=== PATIENT | female | born 1995 | race Caucasian/White ===

== ENCOUNTER 2016-03-04 22:24 | Emergency (ER) | payer OTHER, SELFPAY ==
--- NOTE | 2016-03-05 00:31 | EDDOCDS ---
Nurse's Notes [facility] Name: Luis Eduardo Knapp Age: 20 yrs Sex: Female : 1995 Arrival Date: 03/04/2016 Time: 22:24 Bed Triage 2 Private MD: No Pcp Diagnosis: Abdominal and pelvic pain;Nausea Presentation: 03/04 22:34 Presenting complaint: Patient states: that she has been feeling nauseous for the past ms18 few days and crampy. Risk factors: the patient reports no vaginal bleeding. Adult Sepsis Screening: The patient does not have new or worsening altered mentation. Patient's respiratory rate is less than 22. Systolic blood pressure is greater than 100. Patient has a qSOFA score of 0- Negative Sepsis Screen. Suicide/Homicide risk assessment- the patient denies having any suicidal and/or homicidal ideations and does not present with any other emotional, behavioral or mental health complaints. Status: Patient is not a sales service promoter or dependent. Transition of care: patient was not received from another setting of care. 22:34 Acuity: KORI Level 4 ms18 22:34 Method Of Arrival: Walkin/Carried/Asstd ms18 Triage Assessment: 22:36 General: Appears in no apparent distress, comfortable, Behavior is appropriate for age, ms18 cooperative. Pain: Location: pelvis Pain currently is 5 out of 10 on a pain scale. HIV screening NA for this visit Offered previously. Neurological: No deficits noted. Respiratory: Airway is patent Respiratory effort is even, unlabored. GI: Denies diarrhea, vomiting. Derm: Skin is pink, warm & dry. ERP PM: 22:36 LMP 01/21/2016 ms18 Historical: - Allergies: no known allergies; - Home Meds: 1. control - PMHx: none; - PSHx: none; - Social history: Smoking status: Patient uses tobacco products, current every day smoker. No barriers to communication noted, The patient speaks fluent Indonesian. - Family history: Not pertinent. - : The pt / caregiver states he / she is not on anticoagulants. Home medication list is obtained from the patient. - Exposure Risk Screening:: None identified. Screenin/03 00:27 Screening information is obtained from the patient. Fall risk: No risks identified. jmb Assistance ADL's: requires no assistance with activities of daily living. Abuse/DV Screen: The patient / caregiver reports he/she is: not in a situation that causes fear, pain or injury. Nutritional screening: No deficits noted. Advance Directives: Currently, there is no health care proxy. There is no active DNR order. There is no living will. There is no Power of Appraisal Specialist. home support is adequate. Assessment: 00:27 General: Patient instructed on discharge instructions. Patient asked if there were any b questions regarding discharge, patient stated no. Patient signed discharge instructions. Patient discharged in stable condition. . GI: Abdomen is non- distended Bowel sounds present X 4 quads. Abd is soft X 4 quads. Vital Signs: 03/04 22:26 BP 132 / 67; Pulse 70; Resp 18 S; Temp 98.6(O); Pulse Ox 99% on R/A; Weight 83.01 kg gr2 (R); Height 5 ft. 10 in. (177.80 cm) (R); Pain 6/10; 03/05 00:27 BP 128 / 70; Pulse 72; Resp 20; Temp 98.0(O); Pulse Ox 98% on R/A; Pain 3/10; jmb 03/04 22:26 Body Mass Index 26.26 (83.01 kg, 177.80 cm) gr2 Vitals: 03/04 22:36 Log In Time: March 04, 2016 at 22:24. ms18 ED Course: 22:25 Patient visited by Roldan Healy. gr2 22:25 No Pcp is Private Physician. gr2 22:25 Patient moved to Waiting gr2 22:29 Patient visited by Roldan Healy. gr2 22:29 Patient moved to Pre RCE gr2 22:36 Triage Initiated ms18 22:48 UA Sent. ms18 22:48 Urine Culture Sent. ms18 23:22 Patient moved to Triage 2 cz 23:53 Chago Luke PA is PHCP. mo1 23:53 Joni Irizarry MD is Attending Physician. mo1 23:53 Patient visited by Chago Luke PA. mo1 03/05 00:25 [facility] is Referral Physician. mo1 00:25 Emerson Santacruz MD is Referral Physician. mo1 00:27 The patient / caregiver is instructed regarding the plan of care and ED course. jmb 00:27 No IV's were initiated during this patient's visit. No procedures done that require [facility] assistance. Point of Care Testing: Urine : 03/04 22:48 hCG Reading: Negative; Control Reading: Positive; ms18 Ranges: Order Results: Lab Order: UA; SPEC'M 03/04/16 22:42 Test: APPEARANCE, URINE; Value: CLEAR; Range: CLEAR; Status: F Test: COLOR, URINE; Value: STRAW; Range: YELLOW; Status: F Test: PH,URINE; Value: 5.0; Range: 5.0-9.0; Units: UNITS; Status: F Test: SPECIFIC GRAVITY URINE AUTO; Value: 1.005; Range: 1.002-1.035; Status: F Test: PROTEIN, URINE AUTO; Value: NEGATIVE; Range: NEGATIVE; Units: mg/dL; Status: F Test: GLUCOSE, URINE (UA) AUTO; Value: NEGATIVE; Range: NEGATIVE; Units: mg/dL; Status: F Test: KETONE, URINE AUTO; Value: NEGATIVE; Range: NEGATIVE; Units: mg/dL; Status: F Test: UROBILINOGEN, URINE AUTO; Value: 0.2; Range: 0.0-2.0; Units: mg/dL; Status: F Test: BILIRUBIN, URINE AUTO; Value: NEGATIVE; Range: NEGATIVE; Status: F Test: NITRITE, URINE AUTO; Value: NEGATIVE; Range: NEGATIVE; Status: F Test: LEUKOCYTE ESTERASE, URINE AUTO; Value: NEGATIVE; Range: NEGATIVE; Status: F Test: BLOOD, URINE BLOOD; Value: NEGATIVE; Range: NEGATIVE; Status: F Test: WBC, URINE AUTO; Value: 2; Range: 0-3; Units: /HPF; Status: F Test: RBC, URINE AUTO; Value: 3; Range: 0-3; Units: /HPF; Status: F Test: BACTERIA, URINE AUTO; Value: 1+; Range: NEGATIVE; Abnormal: Above high normal; Status: F Test: SQUAMOUS EPITHELIAL CELL UR AU; Value: 3; Range: 0-6; Units: /HPF; Status: F Test: HYALINE CAST, URINE AUTO; Value: 0; Range: 0-1; Units: /LPF; Status: F Outcome: 03/05 00:25 Discharge ordered by Provider. mo1 00:27 Discharge Assessment: Patient awake, alert and oriented x 3. No cognitive and/or jmb functional deficits noted. Patient verbalized understanding of disposition instructions. Patient awake and alert. obeys commands, Oriented to person, place and time. Patient verbalized understanding of disposition instructions. Patient has no functional deficits. patient administered narcotics - no. The following High Risk Discharge criteria are identified: Yes, Patient refused all services and testing provided by provider. . Discharged to home ambulatory. Condition: stable. Discharge instructions given to patient, Instructed on discharge instructions, follow up and referral plans. Demonstrated understanding of instructions, Pt was receptive of discharge instructions/ teaching. No special radiology studies were completed. Property sent home with patient. 00:30 Patient left the ED. eric Signatures: Luther Gallardo, RN RN cz Roldan Healy gr2 Chago Luke PA PA mo1 Becker, Joshua,RN RN Lorena Mora RN RN ms18 SHARI
--- NOTE | 2016-03-05 00:31 | EDDOCDS ---
Physician Documentation [facility] Name: Luis Eduardo Knapp Age: 20 yrs Sex: Female : 1995 Arrival Date: 03/04/2016 Time: 22:24 Bed Triage 2 Private MD: No Pcp Disposition: 03/05/16 00:25 Discharged to Home/Self Care. Impression: Abdominal and pelvic pain, Nausea. - Condition is Stable. - Discharge Instructions: Nausea, Adult, Pelvic Pain, Female. - Medication Reconciliation, Local Pharmacy Hours form. - [facility]; When: Call to arrange an appointment; Reason: Recheck today's complaints, Continuance of care. Follow up: Emerson Santacruz MD; When: Call to arrange an appointment; Reason: Recheck today's complaints, Continuance of care. - Problem is new. - Symptoms are unchanged. Historical: - Allergies: no known allergies; - Home Meds: 1. control - PMHx: none; - PSHx: none; - Social history: Smoking status: Patient uses tobacco products, current every day smoker. No barriers to communication noted, The patient speaks fluent Azerbaijani. - Family history: Not pertinent. - : The pt / caregiver states he / she is not on anticoagulants. Home medication list is obtained from the patient. - Exposure Risk Screening:: None identified. 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 10 in. (177.80 cm) (R); Pain 6/10; 03/05 00:27 BP 128 / 70; Pulse 72; Resp 20; Temp 98.0(O); Pulse Ox 98% on R/A; Pain 3/10; jmb 03/04 22:26 Body Mass Index 26.26 (83.01 kg, 177.80 cm) gr2 MDM: 03/04 22:39 UCG by Nursing ordered. ms18 22:40 UA Ordered. EDMS 22:40 Urine Culture Ordered. EDMS 03/05 00:12 UA Reviewed. mo1 00:17 -US Pelvic Non-Ob Complete Ordered. EDMS 00:17 DUPLEX SCAN LIMITED (DOPPLER)+US Ordered. EDMO Point of Care Testing: Urine : 03/04 22:48 hCG Reading: Negative; Control Reading: Positive; ms18 Ranges: Signatures: Dispatcher [employer] EDMO Chago Luke PA PA mo1 Soto TamezRN RN Lorena Mora RN RN ms18 The chart was reviewed and I authenticate all verbal orders and agree with the evaluation and treatment provided.Corrections: (The following items were deleted from the chart) 03/05 00:20 00:17 CBC WITH DIFFERENTIAL+LAB ordered. EDMO EDMS 00:20 00:17 BASIC METABOLIC PROFILE+LAB ordered. EDMO EDMO 00:20 00:17 HCG, QUALITATIVE+LAB ordered. EDMO EDMO MTDD
--- NOTE | 2016-03-07 01:31 | EDDOCDS ---
Nurse's Notes [facility] Name: Luis Eduardo Knapp Age: 20 yrs Sex: Female : 1995 Arrival Date: 03/04/2016 Time: 22:24 Bed Triage 2 Private MD: No Pcp Diagnosis: Abdominal and pelvic pain;Nausea Presentation: 03/04 22:34 Presenting complaint: Patient states: that she has been feeling nauseous for the past ms18 few days and crampy. Risk factors: the patient reports no vaginal bleeding. Adult Sepsis Screening: The patient does not have new or worsening altered mentation. Patient's respiratory rate is less than 22. Systolic blood pressure is greater than 100. Patient has a qSOFA score of 0- Negative Sepsis Screen. Suicide/Homicide risk assessment- the patient denies having any suicidal and/or homicidal ideations and does not present with any other emotional, behavioral or mental health complaints. Status: Patient is not a child and family services worker or dependent. Transition of care: patient was not received from another setting of care. 22:34 Acuity: KORI Level 4 ms18 22:34 Method Of Arrival: Walkin/Carried/Asstd ms18 Triage Assessment: 22:36 General: Appears in no apparent distress, comfortable, Behavior is appropriate for age, ms18 cooperative. Pain: Location: pelvis Pain currently is 5 out of 10 on a pain scale. HIV screening NA for this visit Offered previously. Neurological: No deficits noted. Respiratory: Airway is patent Respiratory effort is even, unlabored. GI: Denies diarrhea, vomiting. Derm: Skin is pink, warm & dry. 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 control - PMHx: none; - PSHx: none; - Social history: Smoking status: Patient uses tobacco products, current every day smoker. No barriers to communication noted, The patient speaks fluent Indonesian. - Family history: Not pertinent. - : The pt / caregiver states he / she is not on anticoagulants. Home medication list is obtained from the patient. - Exposure Risk Screening:: None identified. Screenin/03 00:27 Screening information is obtained from the patient. Fall risk: No risks identified. jmb Assistance ADL's: requires no assistance with activities of daily living. Abuse/DV Screen: The patient / caregiver reports he/she is: not in a situation that causes fear, pain or injury. Nutritional screening: No deficits noted. Advance Directives: Currently, there is no health care proxy. There is no active DNR order. There is no living will. There is no Power of Almond Huller. home support is adequate. Assessment: 00:27 General: Patient instructed on discharge instructions. Patient asked if there were any b questions regarding discharge, patient stated no. Patient signed discharge instructions. Patient discharged in stable condition. . GI: Abdomen is non- distended Bowel sounds present X 4 quads. Abd is soft X 4 quads. Vital Signs: 03/04 22:26 BP 132 / 67; Pulse 70; Resp 18 S; Temp 98.6(O); Pulse Ox 99% on R/A; Weight 83.01 kg gr2 (R); Height 5 ft. 10 in. (177.80 cm) (R); Pain 6/10; 03/05 00:27 BP 128 / 70; Pulse 72; Resp 20; Temp 98.0(O); Pulse Ox 98% on R/A; Pain 3/10; jmb 03/04 22:26 Body Mass Index 26.26 (83.01 kg, 177.80 cm) gr2 Vitals: 03/04 22:36 Log In Time: March 04, 2016 at 22:24. ms18 ED Course: 22:25 Patient visited by Roldan Healy. gr2 22:25 No Pcp is Private Physician. gr2 22:25 Patient moved to Waiting gr2 22:29 Patient visited by Roldan Healy. gr2 22:29 Patient moved to Pre RCE gr2 22:36 Triage Initiated ms18 22:48 UA Sent. ms18 22:48 Urine Culture Sent. ms18 23:22 Patient moved to Triage 2 cz 23:53 Chago Luke PA is PHCP. mo1 23:53 Joni Irizarry MD is Attending Physician. mo1 23:53 Patient visited by Chago Luke PA. mo1 03/05 00:25 [facility] is Referral Physician. mo1 00:25 Emerson Santacruz MD is Referral Physician. mo1 00:27 The patient / caregiver is instructed regarding the plan of care and ED course. jmb 00:27 No IV's were initiated during this patient's visit. No procedures done that require jmb assistance. 01:00 [facility] Payment Agreement was scanned into [employer] and attached to record. hs2 04:39 T-Sheet-- Draft Copy was scanned into [employer] and attached to record. hs2 Point of Care Testing: Urine : 03/04 22:48 hCG Reading: Negative; Control Reading: Positive; ms18 Ranges: Order Results: Lab Order: UA; SPEC'M 03/04/16 22:42 Test: APPEARANCE, URINE; Value: CLEAR; Range: CLEAR; Status: F Test: COLOR, URINE; Value: STRAW; Range: YELLOW; Status: F Test: PH,URINE; Value: 5.0; Range: 5.0-9.0; Units: UNITS; Status: F Test: SPECIFIC GRAVITY URINE AUTO; Value: 1.005; Range: 1.002-1.035; Status: F Test: PROTEIN, URINE AUTO; Value: NEGATIVE; Range: NEGATIVE; Units: mg/dL; Status: F Test: GLUCOSE, URINE (UA) AUTO; Value: NEGATIVE; Range: NEGATIVE; Units: mg/dL; Status: F Test: KETONE, URINE AUTO; Value: NEGATIVE; Range: NEGATIVE; Units: mg/dL; Status: F Test: UROBILINOGEN, URINE AUTO; Value: 0.2; Range: 0.0-2.0; Units: mg/dL; Status: F Test: BILIRUBIN, URINE AUTO; Value: NEGATIVE; Range: NEGATIVE; Status: F Test: NITRITE, URINE AUTO; Value: NEGATIVE; Range: NEGATIVE; Status: F Test: LEUKOCYTE ESTERASE, URINE AUTO; Value: NEGATIVE; Range: NEGATIVE; Status: F Test: BLOOD, URINE BLOOD; Value: NEGATIVE; Range: NEGATIVE; Status: F Test: WBC, URINE AUTO; Value: 2; Range: 0-3; Units: /HPF; Status: F Test: RBC, URINE AUTO; Value: 3; Range: 0-3; Units: /HPF; Status: F Test: BACTERIA, URINE AUTO; Value: 1+; Range: NEGATIVE; Abnormal: Above high normal; Status: F Test: SQUAMOUS EPITHELIAL CELL UR AU; Value: 3; Range: 0-6; Units: /HPF; Status: F Test: HYALINE CAST, URINE AUTO; Value: 0; Range: 0-1; Units: /LPF; Status: F Lab Order: Urine Culture; SPEC'M 03/04/16 22:42 Test: URINE CULTURE; Value: URINE CULTURE RESULT NO GROWTH; Status: F Outcome: 03/05 00:25 Discharge ordered by Provider. mo1 00:27 Discharge Assessment: Patient awake, alert and oriented x 3. No cognitive and/or jmb functional deficits noted. Patient verbalized understanding of disposition instructions. Patient awake and alert. obeys commands, Oriented to person, place and time. Patient verbalized understanding of disposition instructions. Patient has no functional deficits. patient administered narcotics - no. The following High Risk Discharge criteria are identified: Yes, Patient refused all services and testing provided by provider. . Discharged to home ambulatory. Condition: stable. Discharge instructions given to patient, Instructed on discharge instructions, follow up and referral plans. Demonstrated understanding of instructions, Pt was receptive of discharge instructions/ teaching. No special radiology studies were completed. Property sent home with patient. 00:30 Patient left the ED. kierra Signatures: Luther Gallardo, RN RN cz Roldan Healy gr2 Chago Luke PA PA mo1 Soto Tamez RN RN jmb Smith, Mallory, RN RN ms18 Michelle Esquivel, Reg Reg hs2 Chart Complete MTDD
--- NOTE | 2016-03-07 01:31 | EDDOCDS ---
Physician Documentation [facility] Name: Luis Eduardo Knapp Age: 20 yrs Sex: Female : 1995 Arrival Date: 03/04/2016 Time: 22:24 Bed Triage 2 Private MD: No Pcp Disposition: 03/05/16 00:25 Discharged to Home/Self Care. Impression: Abdominal and pelvic pain, Nausea. - Condition is Stable. - Discharge Instructions: Nausea, Adult, Pelvic Pain, Female. - Medication Reconciliation, Local Pharmacy Hours form. - [facility]; When: Call to arrange an appointment; Reason: Recheck today's complaints, Continuance of care. Follow up: Emerson Santacruz MD; When: Call to arrange an appointment; Reason: Recheck today's complaints, Continuance of care. - Problem is new. - Symptoms are unchanged. Historical: - Allergies: no known allergies; - Home Meds: 1. control - PMHx: none; - PSHx: none; - Social history: Smoking status: Patient uses tobacco products, current every day smoker. No barriers to communication noted, The patient speaks fluent Tunisian. - Family history: Not pertinent. - : The pt / caregiver states he / she is not on anticoagulants. Home medication list is obtained from the patient. - Exposure Risk Screening:: None identified. 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 10 in. (177.80 cm) (R); Pain 6/10; 03/05 00:27 BP 128 / 70; Pulse 72; Resp 20; Temp 98.0(O); Pulse Ox 98% on R/A; Pain 3/10; jmb 03/04 22:26 Body Mass Index 26.26 (83.01 kg, 177.80 cm) gr2 MDM: 03/04 22:39 UCG by Nursing ordered. ms18 22:40 UA Ordered. EDMS 22:40 Urine Culture Ordered. EDMS 03/05 00:12 UA Reviewed. mo1 00:17 -US Pelvic Non-Ob Complete Ordered. EDMS 00:17 DUPLEX SCAN LIMITED (DOPPLER)+US Ordered. EDMS 01:00 Financial registration complete. hs2 01:00 [facility] Payment Agreement was scanned into [employer] and attached to record. hs2 04:39 T-Sheet-- Draft Copy was scanned into [employer] and attached to record. hs2 Point of Care Testing: Urine : 03/04 22:48 hCG Reading: Negative; Control Reading: Positive; ms18 Ranges: Signatures: Dispatcher [employer] EDMS Chago Luke PA PA mo1 Soto Tamez,RN RN Lorena Mora RN RN ms18 Michelle Esquivel, Reg Reg hs2 The chart was reviewed and I authenticate all verbal orders and agree with the evaluation and treatment provided.Corrections: (The following items were deleted from the chart) 03/05 00:20 00:17 CBC WITH DIFFERENTIAL+LAB ordered. EDMS EDMS 00:20 00:17 BASIC METABOLIC PROFILE+LAB ordered. EDMS EDMS 00:20 00:17 HCG, QUALITATIVE+LAB ordered. EDDC EDMS Attachments: 01:00 [facility] Payment Agreement hs2 04:39 T-Sheet-- Draft Copy hs2 Chart Complete MTDD
--- NOTE | 2016-03-07 01:31 | EDDOCDS ---
Physician Documentation [facility] Name: Luis Eduardo Knapp Age: 20 yrs Sex: Female : 1995 Arrival Date: 03/04/2016 Time: 22:24 Bed Triage 2 Private MD: No Pcp Disposition: 03/05/16 00:25 Discharged to Home/Self Care. Impression: Abdominal and pelvic pain, Nausea. - Condition is Stable. - Discharge Instructions: Nausea, Adult, Pelvic Pain, Female. - Medication Reconciliation, Local Pharmacy Hours form. - Follow up: [facility]; When: Call to arrange an appointment; Reason: Recheck today's complaints, Continuance of care. Follow up: Emerson Santacruz MD; When: Call to arrange an appointment; Reason: Recheck today's complaints, Continuance of care. - Problem is new. - Symptoms are unchanged. Historical: - Allergies: no known allergies; - Home Meds: 1. control - PMHx: none; - PSHx: none; - Social history: Smoking status: Patient uses tobacco products, current every day smoker. No barriers to communication noted, The patient speaks fluent [place]. - Family history: Not pertinent. - : The pt / caregiver states he / she is not on anticoagulants. Home medication list is obtained from the patient. - Exposure Risk Screening:: None identified. 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 10 in. (177.80 cm) (R); Pain 6/10; 03/05 00:27 BP 128 / 70; Pulse 72; Resp 20; Temp 98.0(O); Pulse Ox 98% on R/A; Pain 3/10; jmb 03/04 22:26 Body Mass Index 26.26 (83.01 kg, 177.80 cm) gr2 MDM: 03/04 22:39 UCG by Nursing ordered. ms18 22:40 UA Ordered. EDMS 22:40 Urine Culture Ordered. EDMS 03/05 00:12 UA Reviewed. mo1 00:17 -US Pelvic Non-Ob Complete Ordered. EDMS 00:17 DUPLEX SCAN LIMITED (DOPPLER)+US Ordered. EDMS 01:00 Financial registration complete. hs2 01:00 [facility] Payment Agreement was scanned into [employer] and attached to record. hs2 04:39 T-Sheet-- Draft Copy was scanned into [employer] and attached to record. hs2 Point of Care Testing: Urine : 03/04 22:48 hCG Reading: Negative; Control Reading: Positive; ms18 Ranges: Signatures: Dispatcher [employer] EDMS Chago Luke PA PA mo1 Soto Tamez,RN RN Lorena Mora RN RN ms18 Michelle Esquivel, Reg Reg hs2 The chart was reviewed and I authenticate all verbal orders and agree with the evaluation and treatment provided.Corrections: (The following items were deleted from the chart) 03/05 00:20 00:17 CBC WITH DIFFERENTIAL+LAB ordered. EDMS EDMS 00:20 00:17 BASIC METABOLIC PROFILE+LAB ordered. EDMS EDMS 00:20 00:17 HCG, QUALITATIVE+LAB ordered. EDCO EDMS Attachments: 01:00 [facility] Payment Agreement hs2 04:39 T-Sheet-- Draft Copy hs2 Chart Complete MTDD
== END 2016-03-05 00:30 | disposition home or self-care (01) ==
LOC: M ED 22:24
DX: R11.0 Nausea (principal); R10.2 Pelvic and perineal pain; Z79.3 Long term (current) use of hormonal contraceptives; Z72.0 Tobacco use

== ENCOUNTER 2017-12-24 07:19 | Emergency (ER) | payer OTHER, MEDICAID, SELFPAY ==
[2017-12-24 08:09] LABS: CONTROL LINE UCG INT CTR LINE PRESENT; URINE PREG TEST NEGATIVE (NEGATIVE)
[2017-12-24 08:23] LABS: KETONE, URINE AUTO RFX TRACE mg/dL (NEGATIVE); MUCUS, URINE RFX LARGE (NEGATIVE); NITRITE, URINE AUTO RFX NEGATIVE (NEGATIVE); RBC, URINE AUTO RFX 3 /HPF (0-3); SPECIFIC GRAVITY UR AUTO RFX 1.029 (1.002-1.035); SQUAM EPITHELIAL CELL UR AURFX 28 /HPF (0-6); WBC, URINE AUTO RFX 3 /HPF (0-3)
[2017-12-24 08:49] LABS: LEUKOCYTE ESTERASE UR AUTO RFX 2+ (NEGATIVE)
[2017-12-24 10:23] LABS: CHLAMYDIA DNA AMPLIFICATION NEGATIVE (NEGATIVE); GC DNA AMPLIFICATION NEGATIVE (NEGATIVE)
== END 2017-12-24 09:26 | disposition home or self-care (01) ==
LOC: M ED 07:19
DX: N39.0 Urinary tract infection, site not specified (principal); N76.0 Acute vaginitis; Z72.0 Tobacco use; Z79.899 Other long term (current) drug therapy
CPT/HCPCS: 84703

== ENCOUNTER 2018-12-25 23:52 | Emergency (ER) | payer OTHER, SELFPAY ==
[~2018-12-25] VITALS: Ht 177.8 cm; Wt 100.0 kg
[2018-12-25 23:52] VITALS: BP 138/92
[~2018-12-25 23:52] MED LIST: FLAG500T PO; FLUC10TA PO; MACR100C43 PO; PRED20TA PO; PYRI1TAB5 PO; ZOFR4TAB14 PO
[2018-12-26] MEDS ORDERED: ADACEL/BOOSTRIX VACCINE (DIPHTH/PERTUSS/ACELL/TETANUS)0.5ML SYR (90715) IM ONE (00:45)
== END 2018-12-26 01:07 | disposition home or self-care (01) ==
LOC: M ED 23:52
DX: S61.412A Laceration without foreign body of left hand, initial encounter (principal); S21.219A Laceration without foreign body of unspecified back wall of thorax without penetration into thoracic cavity, initial encounter; W25.XXXA Contact with sharp glass, initial encounter; Y93.72 Activity, wrestling; Y92.019 Unspecified place in single-family (private) house as the place of occurrence of the external cause

== ENCOUNTER → 2019-08-11 | Outpatient (REF) | payer BC ==
[2019-08-11 19:30] LABS: CHLAMYDIA DNA AMPLIFICATION NEGATIVE (NEGATIVE); GC DNA AMPLIFICATION NEGATIVE (NEGATIVE)
== END ==
LOC: M SFHCWAGY 17:09
PROVIDERS: ATTEND Nurse Practitioner Family
DX: Z11.3 Encounter for screening for infections with a predominantly sexual mode of transmission (principal); Z12.4 Encounter for screening for malignant neoplasm of cervix; Z01.419 Encounter for gynecological examination (general) (routine) without abnormal findings
CPT/HCPCS: 87661; G0123

== ENCOUNTER 2019-08-12 22:12 | Emergency (ER) | payer OTHER, BC ==
[~2019-08-12] VITALS: Ht 177.8 cm; Wt 105.3 kg
[2019-08-12 23:51] VITALS: BP 110/61
--- NOTE | 2019-08-13 01:42 | REP ---
Clinical: Trauma. Technique: AP, lateral, bilateral oblique views right wrist. Findings: The carpal bones, surrounding osseous structures, soft tissues, and joint spaces are normal. There is no evidence for acute fracture or dislocation. No subcutaneous emphysema or radiodense foreign body. Impression: Normal wrist series. No acute fracture or dislocation Electronically Signed by Faisal Escalante MD 08/13/2019 01:34 A
== END 2019-08-12 23:52 | disposition home or self-care (01) ==
LOC: M ED 22:12
DX: S63.501A Unspecified sprain of right wrist, initial encounter (principal); W19.XXXA Unspecified fall, initial encounter; Y92.89 Other specified places as the place of occurrence of the external cause; Y99.0 Civilian activity done for income or pay; F17.210 Nicotine dependence, cigarettes, uncomplicated

== ENCOUNTER → 2019-10-01 | Outpatient (REF) | payer BC | LOC: M LAB REF 10:43 | PROVIDERS: ATTEND Physician Assistant Medical | DX: Z11.59 Encounter for screening for other viral diseases (principal); Z20.828 Contact with and (suspected) exposure to other viral communicable diseases ==

== ENCOUNTER → 2019-10-07 | Outpatient (REF) | payer BC ==
[2019-12-03 02:33] LABS: BASO % 0.3 % (0.0-1.0); EOS # 0.2 10^3/uL (0.0-0.5); EOS % 2.4 % (0.0-3.0); HEMATOCRIT 41.1 % (36.0-47.0); HEMOGLOBIN 13.4 g/dl (12.0-15.5); LYMPH # 2.2 10^3/uL (1.5-5.0); LYMPH % 22.6 % (24.0-44.0); MEAN CORPUSCULAR HEMOGLOBIN 28.5 pg (27.0-33.0); MEAN CORPUSCULAR HGB CONC 32.6 g/dl (32.0-36.5); MEAN CORPUSCULAR VOLUME 87.3 fl (80.0-96.0); MONO # 0.7 10^3/uL (0.0-0.8); MONO % 7.2 % (0.0-5.0); NEUTROPHILS # 6.5 10^3/uL (1.5-8.5); PLATELET COUNT, AUTOMATED 234 10^3/uL (150-450); RED BLOOD COUNT 4.71 10^6/uL (4.00-5.40); WHITE BLOOD COUNT 9.7 10^3/uL (4.0-10.0)
[2019-12-04 16:27] LABS: ALT/SGPT 20 U/L (12-78); BILIRUBIN,TOTAL 0.5 MG/DL (0.2-1.0); CREATININE FOR GFR 0.58 MG/DL (0.55-1.30); GLOMERULAR FILTRATION RATE > 60.0 (>60); GLUCOSE CHALLENGE TEST 1 HOUR 72 MG/DL (LESS THAN 140); HEPATITIS B SURFACE ANTIGEN NEGATIVE (NEGATIVE); HEPATITIS C VIRUS ABY INDEX 0.2 INDEX (<0.8); HIV 1&2 SCREEN CENTAUR NEGATIVE (NEGATIVE); LDH LACTATE DEHYDROGENASE 129 U/L (84-246); URIC ACID 3.3 MG/DL (2.6-6.0)
== END ==
LOC: M SFHCWAGY 14:39
PROVIDERS: ATTEND Advanced Practice Midwife
DX: Z34.01 Encounter for supervision of normal first pregnancy, first trimester (principal); Z36.89 Encounter for other specified antenatal screening

== ENCOUNTER → 2019-11-02 | Outpatient (REF) | payer BC ==
[2019-11-02 20:13] LABS: CHLAMYDIA DNA AMPLIFICATION NEGATIVE (NEGATIVE); GC DNA AMPLIFICATION NEGATIVE (NEGATIVE)
== END ==
LOC: M LAB REF 17:40
PROVIDERS: ATTEND Advanced Practice Midwife
DX: Z34.02 Encounter for supervision of normal first pregnancy, second trimester (principal); Z36.89 Encounter for other specified antenatal screening

== ENCOUNTER 2019-12-07 15:36 | Emergency (ER) | payer BC, OTHER ==
[~2019-12-07] VITALS: Ht 177.8 cm; Wt 104.6 kg
[2019-12-07] MEDS ORDERED: NS 1,000 ML IV ONE (16:45)
[2019-12-07] MEDS ORDERED: ACETAMINOPHEN TAB 650MG DOSE (2X325MG) PO ONE (16:45)
[2019-12-07 17:23] LABS: BASO % 0.2 % (0.0-1.0); EOS # 0.2 10^3/uL (0.0-0.5); EOS % 1.6 % (0.0-3.0); HEMATOCRIT 38.8 % (36.0-47.0); HEMOGLOBIN 13.1 g/dl (12.0-15.5); LYMPH # 2.6 10^3/uL (1.5-5.0); LYMPH % 21.6 % (24.0-44.0); MEAN CORPUSCULAR HEMOGLOBIN 29.3 pg (27.0-33.0); MEAN CORPUSCULAR HGB CONC 33.8 g/dl (32.0-36.5); MEAN CORPUSCULAR VOLUME 86.8 fl (80.0-96.0); MONO # 0.7 10^3/uL (0.0-0.8); MONO % 6.2 % (0.0-5.0); NEUTROPHILS # 8.4 10^3/uL (1.5-8.5); NEUTROPHILS % 69.9 % (36.0-66.0); PLATELET COUNT, AUTOMATED 213 10^3/uL (150-450); RED BLOOD COUNT 4.47 10^6/uL (4.00-5.40); WHITE BLOOD COUNT 11.9 10^3/uL (4.0-10.0)
--- NOTE | 2019-12-07 17:59 | REPVR ---
PROCEDURE INFORMATION: Exam: US , Limited Exam date and time: 12/07/2019 5:13 PM Age: 24 years old Clinical indication: complicated by abdominal or pelvic pain; Lower; Second trimester; Gestational age or lmp: 17; ; Additional info: Pelvic cramping, 17 weeks . TECHNIQUE: Imaging protocol: Real-time ultrasound of the maternal uterus with image documentation. Exam focused on the clinical indication. COMPARISON: CT ABD PELVIS WITH CONTRAST 09/11/2014 3:01 AM FINDINGS: Single, living intrauterine fetus in transverse oblique presentation with the head to the maternal left. The given gestational age by the LMP from 08/06/2019 measures 17 weeks and 4 days and FUAD of 05/12/2020. Placenta is posterior and grade 0. No abruptio or previa. The heart rate is 165 beats/min. The SONIA measures 10.21 cm, which is normal. The cervix is closed and measures 3.3 cm in length. IMPRESSION: 1. Single, intrauterine fetus in transverse oblique presentation, with a heart rate of 165 beats per minute. The given gestational age by the LMP from 08/06/2019 measures 17 weeks and 4 days and FUAD of 05/12/2020. 2. Normal SONIA, measuring 10.21 cm. Electronically signed by: Jarad Redd On 12/07/2019 17:58:53 PM
[2019-12-07 18:36] VITALS: BP 134/72
== END 2019-12-07 18:51 | disposition home or self-care (01) ==
LOC: M ED 15:36
DX: O26.892 Other specified pregnancy related conditions, second trimester (principal); M54.5 Low back pain; O99.332 Smoking (tobacco) complicating pregnancy, second trimester; F17.200 Nicotine dependence, unspecified, uncomplicated; Z3A.17 17 weeks gestation of pregnancy

== ENCOUNTER → 2019-12-10 | Outpatient (CLI) | payer BC ==
--- NOTE | 2019-12-15 07:05 | REP ---
OBSTETRIC SONOGRAPHY HISTORY: Supervision of for anatomy. FINDINGS: Scanning through the gravid uterus demonstrates a single living intrauterine gestation in a cephalic lie. Placenta is posterior grade 1 without evidence of previa. Amniotic fluid is subjectively normal. Closed cervical length is measured transabdominally at 3.0 cm. heart rate is recorded at 153 beats per minute. No anomaly is seen. The following anatomic structures are identified and felt to be sonographically unremarkable: cranium, intracranial anatomy, nuchal fold face profile, nose and lips, four chamber heart with left and right ventricular outflow tract views, diaphragm, left-sided stomach, abdominal wall cord insertion, bilateral kidneys and urinary bladder, spine, upper and lower extremities. BIOMETRY CHART: BPD 4.5 cm 19 weeks 3 days Head circumference 16.1 cm 18 weeks 6 days Abdominal circumference 13.6 cm 19 weeks 1 day Femur length 2.8 cm 18 weeks 3 days Humeral length 2.7 cm 18 weeks 4 days AC/HC ratio 1.18 Normal Cephalic index 0.78 Normal Estimated weight 258 grams, 0 pounds 9 ounces, 89th percentile for 18 weeks 0 days. IMPRESSION: Single living intrauterine gestation at 18 weeks 6 days by todays composite criteria. Estimated date of delivery (FUAD) by todays sonography 05/06/2020. anatomic survey is felt to be complete. MTDD
== END ==
LOC: M WHC 09:16
PROVIDERS: ATTEND Advanced Practice Midwife
DX: Z34.02 Encounter for supervision of normal first pregnancy, second trimester (principal); Z3A.18 18 weeks gestation of pregnancy

== ENCOUNTER 2020-01-31 14:48 | Emergency (ER) | payer BC ==
[~2020-01-31] VITALS: Ht 177.8 cm; Wt 110.9 kg
[2020-01-31 16:03] LABS: BASO % 0.1 % (0.0-1.0); EOS # 0.1 10^3/uL (0.0-0.5); EOS % 0.7 % (0.0-3.0); HEMATOCRIT 35.8 % (36.0-47.0); HEMOGLOBIN 11.8 g/dl (12.0-15.5); LYMPH % 16.8 % (24.0-44.0); MEAN CORPUSCULAR HEMOGLOBIN 29.2 pg (27.0-33.0); MEAN CORPUSCULAR VOLUME 88.6 fl (80.0-96.0); MONO # 0.6 10^3/uL (0.0-0.8); NEUTROPHILS # 9.1 10^3/uL (1.5-8.5); PLATELET COUNT, AUTOMATED 191 10^3/uL (150-450); RED BLOOD COUNT 4.04 10^6/uL (4.00-5.40); WHITE BLOOD COUNT 11.9 10^3/uL (4.0-10.0)
[2020-01-31] MEDS ORDERED: NS 1,000 ML IV ONE (16:30)
[2020-01-31 16:38] LABS: ALBUMIN 2.7 GM/DL (3.2-5.2); ALT/SGPT 10 U/L (12-78); BILIRUBIN,DIRECT < 0.1 MG/DL (0.0-0.2); BLOOD UREA NITROGEN 6 MG/DL (7-18); CALCIUM LEVEL 8.2 MG/DL (8.5-10.1); CARBON DIOXIDE LEVEL 25 MEQ/L (21-32); CHLORIDE LEVEL 110 MEQ/L (98-107); CREATININE FOR GFR 0.48 MG/DL (0.55-1.30); GLOMERULAR FILTRATION RATE > 60.0 (>60); GLUCOSE, FASTING 115 MG/DL (70-100); LIPASE 108 U/L (73-393); MAGNESIUM LEVEL 1.7 MG/DL (1.8-2.4); POTASSIUM SERUM 3.9 MEQ/L (3.5-5.1); SODIUM LEVEL 140 MEQ/L (136-145); TOTAL PROTEIN 5.7 GM/DL (6.4-8.2)
[2020-01-31 16:54] LABS: BILIRUBIN,TOTAL < 0.1 MG/DL (0.2-1.0)
[2020-01-31] MEDS ORDERED: KEFL500C17 PO (18:15)
[2020-01-31 18:24] VITALS: BP 142/87
--- NOTE | 2020-01-31 19:19 | ECGEPIP ---
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
== END 2020-01-31 18:31 | disposition home or self-care (01) ==
LOC: M ED 14:48
DX: N39.0 Urinary tract infection, site not specified (principal); F17.210 Nicotine dependence, cigarettes, uncomplicated

== ENCOUNTER → 2020-03-28 | Outpatient (CLI) | payer BC, MEDICAID ==
[~2020-03-28] MED LIST changes: +KEFL500C17 PO; +PRIL20TA2 PO
== END ==
LOC: M WHC 09:09
PROVIDERS: ATTEND Obstetrics & Gynecology
DX: Z34.83 Encounter for supervision of other normal pregnancy, third trimester (principal); Z3A.33 33 weeks gestation of pregnancy

== ENCOUNTER → 2020-04-04 | Outpatient (CLI) | payer OTHER ==
[~2020-04-04] MED LIST changes: -PRIL20TA2 PO
--- NOTE | 2020-04-04 17:11 | REP ---
INDICATION: GROWTH COMPARISON: None. TECHNIQUE: Transabdominal obstetrical ultrasound with color Doppler evaluation. FINDINGS: Examination demonstrates a single live intrauterine in cephalic presentation. motion is identified by technologist. Placenta is noted posterior and grade 3 without evidence for placenta previa or abruption. Amniotic fluid volume is normal. Cervix appears closed. Gestational age by LMP 34 weeks 4 days with FUAD 05/12/2020. Gestational age by current measurements 36 weeks 6 days with FUAD 04/26/2020. FHR equals 155 beats per minute. BPD: 9.0 cm 36 weeks 3 days HC: 33.1 cm 37 weeks 5 days AC: 34.5 cm 38 weeks 3 days FL: 7.0 cm 35 weeks 6 days HL: 6.2 cm 36 weeks 0 days HC/AC: 0.96 Estimated weight 3222 grams (greater than 97th percentile based on age by LMP and 1st ultrasound). IMPRESSION: Advanced gestation in cephalic presentation. Estimated weight and growth somewhat greater than expected based on age by LMP. <Electronically signed by Faisal Escalante > 04/04/20 2100
== END ==
LOC: M WHC 14:56
PROVIDERS: ATTEND Advanced Practice Midwife
DX: Z34.93 Encounter for supervision of normal pregnancy, unspecified, third trimester (principal); Z3A.34 34 weeks gestation of pregnancy

== ENCOUNTER → 2020-04-11 | Outpatient (REF) | payer BC ==
[2020-04-11 15:36] LABS: HEMATOCRIT 36.5 % (36.0-47.0); HEMOGLOBIN 11.5 g/dl (12.0-15.5); MEAN CORPUSCULAR HEMOGLOBIN 26.9 pg (27.0-33.0); MEAN CORPUSCULAR HGB CONC 31.5 g/dl (32.0-36.5); MEAN CORPUSCULAR VOLUME 85.3 fl (80.0-96.0); PLATELET COUNT, AUTOMATED 220 10^3/uL (150-450); RED BLOOD COUNT 4.28 10^6/uL (4.00-5.40); WHITE BLOOD COUNT 10.6 10^3/uL (4.0-10.0)
== END ==
LOC: M PLALAB 10:25
PROVIDERS: ATTEND Advanced Practice Midwife
DX: O99.213 Obesity complicating pregnancy, third trimester (principal)

== ENCOUNTER → 2020-04-18 | Outpatient (REF) | payer BC, OTHER ==
[~2020-04-18] MED LIST changes: +PRIL20TA2 PO
== END ==
LOC: M PLALAB 12:20
PROVIDERS: ATTEND Obstetrics & Gynecology
DX: Z36.85 Encounter for antenatal screening for Streptococcus B (principal); Z3A.36 36 weeks gestation of pregnancy; Z53.9 Procedure and treatment not carried out, unspecified reason

== ENCOUNTER → 2020-04-20 | Outpatient (REF) | payer BC, OTHER | LOC: M PLALAB 11:42 | PROVIDERS: ATTEND Obstetrics & Gynecology | DX: Z34.93 Encounter for supervision of normal pregnancy, unspecified, third trimester (principal); Z3A.36 36 weeks gestation of pregnancy | CPT/HCPCS: 36415; 86850; 86900; 86901; 87081; 87186; J2790 ==

== ENCOUNTER 2020-04-30 19:05 | Outpatient (CLI) | payer BC ==
[~2020-04-30] VITALS: Ht 177.8 cm; Wt 121.3 kg
[~2020-04-30 19:05] MED LIST changes: -PRIL20TA2 PO
[2020-04-30 19:37] VITALS: BP 142/99
[2020-04-30 19:54] VITALS: BP 132/77
[2020-04-30 20:35] VITALS: BP 127/69
[2020-04-30 21:17] LABS: HEMATOCRIT 33.7 % (36.0-47.0); HEMOGLOBIN 10.3 g/dl (12.0-15.5); MEAN CORPUSCULAR HEMOGLOBIN 24.7 pg (27.0-33.0); MEAN CORPUSCULAR HGB CONC 30.6 g/dl (32.0-36.5); MEAN CORPUSCULAR VOLUME 80.8 fl (80.0-96.0); PLATELET COUNT, AUTOMATED 238 10^3/uL (150-450); RED BLOOD COUNT 4.17 10^6/uL (4.00-5.40); WHITE BLOOD COUNT 12.4 10^3/uL (4.0-10.0)
[2020-04-30 21:40] LABS: ALBUMIN 2.5 GM/DL (3.2-5.2); ALT/SGPT 15 U/L (12-78); BILIRUBIN,TOTAL 0.1 MG/DL (0.2-1.0); BLOOD UREA NITROGEN 8 MG/DL (7-18); CALCIUM LEVEL 8.3 MG/DL (8.5-10.1); CARBON DIOXIDE LEVEL 23 MEQ/L (21-32); CHLORIDE LEVEL 111 MEQ/L (98-107); CREATININE FOR GFR 0.66 MG/DL (0.55-1.30); GLOMERULAR FILTRATION RATE > 60.0 (>60); GLUCOSE, FASTING 93 MG/DL (70-100); POTASSIUM SERUM 3.7 MEQ/L (3.5-5.1); SODIUM LEVEL 142 MEQ/L (136-145); TOTAL PROTEIN 5.6 GM/DL (6.4-8.2)
--- NOTE | 2020-04-30 22:43 | IPNPDOC ---
Text Note Date of Service The patient was seen on 04/30/20. NOTE Triage Note Luis Eduardo is a 24yo with SIUP at 38w2d presenting for swelling of her feet/lower legs and firm/tender area on her belly. No other complaints. Good movement, no painful/regular ctx, no LOF, no vaginal bleeding. No fevers/chills/nausea/vomiting. No SAN/vision changes/RUQ pain. Vitals: one mild range bp followed by normal bp's, afebrile General: WDWN, resting comfortably in bed Abdomen: soft, gravid, NTTP. Area at dependent part of pannus has some indurat ion consistent with dependent edema (no erythema or skin changes) Extremities: trace edema to 1+ of feet and calves consistent with normal related edema Cat I FHRT with +accels, -decels, mod josselyn Fords: no ctx pattern Labs: T&S: O negative, ab neg CBC: H/H 10.3/33.7, plt 238 CMP: creat 0.66, LFTs wnl urine protein:creatinine: 0.22 Assessment: Luis Eduardo is a 24yo with SIUP at 38w2d with normal edema of . One mild range bp followed by normal bp's- pre-E workup is negative with urine prot:creat 0.22. Reassuring assessment. Plan: -Discharge to home -Keep next OB visit on 04 May (will need rhogam at that visit since she had lab re-drawn and rhogam created). Has IOL scheduled 05/08 for macrosomia. -discussed compression stockings and elevation of legs -discussed return precautions -safe for discharge MD JUAN Conklin,Samuel I+O Samuel MARTINEZ I+O Laboratory Tests 04/30/20 21:12 Vital Signs Date Time Temp Pulse Resp B/P (MAP) Pulse Ox O2 Delivery O2 Flow Rate FiO2 04/30/20 20:35 98.4 91 18 127/69 (88) Jesenia Arevalo MD Apr 30, 2020 22:43
== END 2020-04-30 22:20 | disposition home or self-care (01) ==
LOC: M LDO 19:05
PROVIDERS: ATTEND Obstetrics & Gynecology
DX: O12.02 Gestational edema, second trimester (principal); Z3A.38 38 weeks gestation of pregnancy
CPT/HCPCS: 36415; 59025; 80053; 82570; 84156; 85027; 86780; 86850; 86900; 86901; 87340; G0378; G0463

== ENCOUNTER 2020-05-08 09:37 | Inpatient (IN) | payer BC, OTHER ==
[2020-05-08] VITALS (20 sets, daily range): BP systolic 113–148; BP diastolic 60–93
[~2020-05-08] VITALS: Ht 177.8 cm; Wt 122.1 kg
[2020-05-08] MEDS ORDERED: PRIL20TA2 PO (10:04)
[2020-05-08] MEDS ORDERED: PENICILLIN G POTASSIUM IV 5 MU in D5W MINI-BAG PLUS 100 ML IV STA (10:10)
[2020-05-08] MEDS ORDERED: LACTATED RINGER'S 1000 ML IV STA (10:10)
[2020-05-08 10:59] LABS: HEMATOCRIT 32.9 % (36.0-47.0); HEMOGLOBIN 10.1 g/dl (12.0-15.5); MEAN CORPUSCULAR HEMOGLOBIN 24.6 pg (27.0-33.0); MEAN CORPUSCULAR HGB CONC 30.7 g/dl (32.0-36.5); MEAN CORPUSCULAR VOLUME 80.2 fl (80.0-96.0); PLATELET COUNT, AUTOMATED 212 10^3/uL (150-450); WHITE BLOOD COUNT 8.4 10^3/uL (4.0-10.0)
[2020-05-08] MEDS ORDERED: LR 1,000 ML IV SCH (11:12)
[2020-05-08] MEDS ORDERED: OXYTOCIN DRIP 30 UNITS in IV 1 EA IV SCH ×2 (11:15→18:10)
--- NOTE | 2020-05-08 11:16 | HPEPDOC ---
Obstetrical History & Physical General Date of Admission May 08, 2020 at 09:37 Primary Care Physician: ALBERTO WHITLEY CNM History of Present Illness Luis Eduardo is a 24-year-old female who is a at 39.3 weeks gestation with an FUAD of 05/12/20 based off of her LMP and consistent with her first trimester ultras ound. She initiated care in her first trimester of . Her has been complicated by being a smoker, having COVID at the end of January, and obesity. She presents for an induction of labor today due to a growth ultrasound at 34 weeks showing fetus to be greater than 97%. Reports active movement. Denies leaking of fluid, vaginal bleeding or contractions. 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 Surgical History: Denies/None Family History Significant Family History: Diabetes, Other (skin cancer) Social History Marital Status: Single Family situation: Spouse/partner home Psychosocial History: No pertinent psych hx * Smoker: current smoker Alcohol: Denies Drugs: denies Abuse Violence Screening Have you been hit/kicked/slapp: No Have you been sexually assault: No Allergies Coded Allergies: No Known Allergies (Verified , 09/06/02) Medications Scheduled Omeprazole Magnesium (Prilosec Otc) 20 Mg Tablet.dr, 1 TAB PO DAILY Physical Examination Physical Examination GENERAL: Alert and oriented times three. BREAST: . ABDOMEN: Gravid and non-tender to touch. FETUS: Is vertex (VTX) by sterile vaginal examination (SVE), fetus is vertex (VTX) by Chele. EFW 3900 grams. LUNGS: Clear to auscultation (CTA). EXTREMITIES: No edema. No clonus. Deep tendon reflexes (DTRs) + 2. Vital Signs/I&O Vital Signs Date Time Temp Pulse Resp B/P (MAP) Pulse Ox O2 Delivery O2 Flow Rate FiO2 05/08/20 10:02 98.0 98 18 144/77 (99) Laboratory Data 24H LABS Laboratory Tests 2 05/08/20 09:50: Serology Scanned Report Hepatitis B Testing 05/08/20 10:26: 05/08/20 10:50: Nucleated Red Blood Cells % (auto) 0.0 CBC/BMP Laboratory Tests 05/08/20 10:50 Pertinent Laboratoy Data Blood Type: O- RBC Antibody Screen: Negative HIV: Negative Hepatitis B: Negative Hepatitis C: Negative Rapid Plasma Reagin: Nonreactive Rubella: Immune Chlamydia/Gonorrhea: Negative Group B Streptococcus: Positive Glucose Tolerance Test: 102 Anatomy Ultrasound Ultrasound Date: Apr 04, 2020 Placenta Location: Posterior Normal Anatomy: Yes Placenta Previa: No Estimated Weight (grams): 3222 Vaginal Examination Dilation: 4 cm (4-5 cm) Effacement: 80% Station: -1 Cervical Consistency: Soft Cervical Position: Anterior Presentation: Cephalic presentation Position: Vertex (occiput) Assessment Heart Rate (FHR): 150 Variability: Moderate Accelerations: Positive Decelerations: None Tocometer Contractions: Yes Frequency: irregular Multi-drug resistant Organism: No history of MDRO Assessment/Plan Assessment IUP at 39.3 weeks gestation elective IOL due to possible macrosomia GBS positive Category I FHR tracing Plan Admit to L&D. OOB ad blake Diet: clear. Group B Streptococcus (GBS) positive. Start antibiotics per order. Labs and intravenous (IV) per unit protocol. Counseled on Pitocin for induction of labor. Anesthesia consult per patient's request. Lactated Ringers (LR): Bolus 800 mL, then at 125 mL/hr. Anticipate cervical change and . C-S as appropriate. ALBERTO WHITLEY CNM May 08, 2020 11:16
[2020-05-08] MEDS ORDERED: PENICILLIN G POTASSIUM IV 2.5 MU in IV 1 EA IV SCH (15:00)
[2020-05-08 15:37] LABS: ALT/SGPT 14 U/L (12-78); BILIRUBIN,TOTAL 0.4 MG/DL (0.2-1.0); CREATININE FOR GFR 0.61 MG/DL (0.55-1.30); GLOMERULAR FILTRATION RATE > 60.0 (>60); LDH LACTATE DEHYDROGENASE 201 U/L (84-246); URIC ACID 4.5 MG/DL (2.6-6.0)
--- NOTE | 2020-05-08 15:38 | IPNPDOC ---
Obstetrical Progress Note Date of Service May 08, 2020 Subjective Patient reports she is coping well with her contractions. States she feels pressure with some contractions. Objective Vital Signs Date Time Temp Pulse Resp B/P (MAP) Pulse Ox O2 Delivery O2 Flow Rate FiO2 05/08/20 11:47 94 18 143/78 (99) 05/08/20 10:02 98.0 Assessment Heart Rate (FHR): 150 Variability: Moderate Accelerations: Positive Decelerations: None Heart Rate Tracing: Category I Tocometer Contractions: Yes Frequency: regular Sterile Vaginal Examination Dilation: 4 cm (4-5) Effacement (%): 80% Station: -1 Cervical Consistency: Soft Cervical Position: Anterior Postion/Presentation: Cephalic presentation Assessment and Plan Status: Reassuring Group B Streptococcus: Positive Anticipate: Vaginal Delivery Additional Comments IV Pitocin at 8 mu/min. Patient desires to move but having a hard time monitoring fetus and contractions. Option offered to patient for AROM and internal monitors. Reviewed risk, benefits, alternatives. Patient agrees with plan and AROM to a moderate amount of clear fluid. FSE and IUPC placed so patient can be mobile. Patient tolerated well. ALBERTO WHITLEY CNM May 08, 2020 15:38
[2020-05-08] MEDS ORDERED: PROMETHAZINE INJ 25 MG/ML VIAL (J2550) IV ONE (15:40)
[2020-05-08] MEDS ORDERED: BUTORPHANOL 2 MG/ML INJ (J0595) IV ONE (15:40)
[2020-05-08] MEDS ORDERED: IBUPROFEN 600MG TAB PO PRN (18:10)
[2020-05-08] MEDS ORDERED: IBUPROFEN 800 MG TAB PO PRN (18:10)
[2020-05-08] MEDS ORDERED: ACETAMINOPHEN 500 MG TAB PO PRN (18:10)
[2020-05-08] MEDS ORDERED: RHOGAM 300 MCG (1500 IU) INJ (J2790) IM SCH (18:10)
[2020-05-08] MEDS ORDERED: MEASLES,MUMPS,RUBELLA VACCINE INJ (MMR-II) (90707) SC SCH (18:10)
[2020-05-08] MEDS ORDERED: ANUSOL HC CREAM 30GM TOP PRN (18:10)
[2020-05-08] MEDS ORDERED: LIDOCAINE 1% MDV 20ML VIAL INFIL ONE (18:10)
[2020-05-08] MEDS ORDERED: DOCUSATE SODIUM 100MG CAPSULE PO PRN (18:10)
[2020-05-08] MEDS ORDERED: DIBUCAINE 1% OINTMENT 30GM TOP PRN (18:10)
[2020-05-08] MEDS ORDERED: METHYLERGONOVINE MALEATE 0.2 MG TAB PO PRN (18:10)
[2020-05-08] MEDS ORDERED: ACETAMINOPHEN TAB 650MG DOSE (2X325MG) PO PRN (18:10)
--- NOTE | 2020-05-08 19:25 | DNPDOC ---
[facility] Delivery Note Delivery Note DATE OF DELIVERY: 05/08/20 at 1713 PREDELIVERY DIAGNOSIS: 39-3/7 weeks' gestation and induction. POST DELIVERY DIAGNOSIS: Delivered. PROCEDURE: Spontaneous vaginal delivery. MANAGEMENT TRAINER: Alberto Sesay CNM, RODO ANESTHESIA: none. ESTIMATED BLOOD LOSS: 400 mL. FINDINGS: 9 pounds 14 ounces; 4470 grams; male infant, Score 8/9, macrosomia, GHTN diagnosed during stay; left compound hand. DELIVERY SUMMARY: Luis Eduardo is a 24-year-old female who is now a at 39.3 weeks who presented for an induction of labor due to suspected macrosomia of fetus. She received IV Pitocin for induction. The patient progressed to fully dilated at 1700 and pushed to a living male in the ELEONORA position with restitution to LOT. A left compound hand was noted posterior. The anterior shoulder delivered with gentle downward traction and the corpus immediately followed. The baby was placed on the maternal abdomen active and crying with stimulation. The cord was clamped x2 after pulsation ceased. The FOB cut the cord. A 3-vessel cord was noted. The placenta delivered spontaneously and intact at 1719. Uterine hemostasis was achieved via rapid infusion of IV Pitocin and fundal massage. The vagina, cervix, and perineum were inspected and found to have a second degree perineal laceration that was repaired with a 3.[address]-1 and bilater al labial lacerations that were repaired with 4.0 Vicryl rapide RB1. There was a labial split on right side close to clitoris and attempted repair but patient declined further repair due to discomfort. Lidocaine 1% was used to help numb the area. Mom plans to breastfeed. They are naming him Gold. Both mom and baby are in stable condition. All counts of instruments and sponges are correct. ALBERTO SESAY CNM May 08, 2020 19:25
[2020-05-09 06:00] VITALS: BP 132/60
[2020-05-09] MEDS: PRENATAL VITAMINS CHEWABLE TABLET PO SCH (08:24)
--- NOTE | 2020-05-09 09:09 | IPNPDOC ---
Progress Note Date of Service: May 09, 2020 Day#: 1 Progress Note SUBJECT: Luis Eduardo is a 24-year-old female who is now a who had a vaginal delivery of a living male who weighed 9 lbs 14 oz. She has been ambulating, voiding spontaneously without issue and tolerating regular diet. Breast feeding and formula feeding. OBJECTIVE: VITAL SIGNS: Within normal limits, afebrile. Alert and oriented times three. Respiratory rate is regular without use of accessory muscles. Abdomen: Fundus firm at U-2. Soft, NTTP. Minimal lochia. ASSESSMENT: Day 1 PLAN: 1. Continue supportive nursing care. 2. Anticipate discharge to home tomorrow. 3. Patient to shower today and have IV removed. VS, I&O, 24H, Fishbone Vital Signs/I&O Vital Signs Date Time Temp Pulse Resp B/P (MAP) Pulse Ox O2 Delivery O2 Flow Rate FiO2 05/09/20 06:00 98.9 89 20 132/60 (84) 97 Room Air I&O- Last 24 Hours up to 6 AM 05/09/20 06:00 Intake Total 1165.2 ml Output Total 400 ml Balance 765.2 ml Laboratory Data 24H LABS Laboratory Tests 2 05/08/20 09:50: Serology Scanned Report Hepatitis B Testing 05/08/20 10:26: Glomerular Filtration Rate > 60.0, Uric Acid 4.5, Total Bilirubin 0.4, Aspartate Amino Transf (AST/SGOT) 13, Alanine Aminotransferase (ALT/SGPT) 14, Lactate Dehydrogenase 201, Syphilis Serology NONREACTIVE 05/08/20 10:50: Nucleated Red Blood Cells % (auto) 0.0 CBC/BMP Laboratory Tests 05/08/20 10:26 05/08/20 10:50 ALBERTO WHITLEY CNM May 09, 2020 09:09
[2020-05-09 18:00] VITALS: BP 146/86
[2020-05-10 06:00] VITALS: BP 152/80
--- NOTE | 2020-05-10 08:26 | IPNPDOC ---
Progress Note Date of Service: May 10, 2020 Day#: 2 Progress Note SUBJECT: Status post . She has been ambulating, voiding spontaneously without issue and tolerating regular diet. Lochia decreasing/minimal. Pain is well-controlled. Denies headache, visual changes, right upper quadrant pain, shortness breath or chest pain. OBJECTIVE: VITAL SIGNS: Intermittent Mild hypertension afebrile. Alert and oriented times three. Abdomen: Fundus firm at U-2. Soft, NTTP. ASSESSMENT: Status post uncomplicated spontaneous vaginal delivery. Vitals within normal limits, afebrile, hemodynamically stable with no evidence of infection. PLAN: Discharge to home today. Tylenol and Motrin for pain. Routine instructions/precautions, pre-eclampsia precautions reviewed. Routine PP visit in 6 weeks in clinic. Karen Moffett DO VS, I&O, 24H, [place] Vital Signs/I&O Vital Signs Date Time Temp Pulse Resp B/P (MAP) Pulse Ox O2 Delivery O2 Flow Rate FiO2 05/10/20 06:00 98.5 107 17 152/80 (104) 99 Room Air CELENA MOFFETT DO May 10, 2020 08:26
[2020-05-10] MEDS: PRENATAL VITAMINS CHEWABLE TABLET PO SCH (09:24)
== END 2020-05-10 11:50 | disposition home or self-care (01) | DRG 560 ==
LOC: M LDI 09:37 → M OBS 20:02
PROVIDERS: ADMIT Advanced Practice Midwife; ATTEND Advanced Practice Midwife
PROC: 10E0XZZ Delivery of Products of Conception, External Approach (ICD-10-PCS; principal; 2020-05-08)
PROC: 0KQM0ZZ Repair Perineum Muscle, Open Approach (ICD-10-PCS; 2020-05-08)
PROC: 0HQ9XZZ Repair Perineum Skin, External Approach (ICD-10-PCS; 2020-05-08)
PROC: 3E033VJ Introduction of Other Hormone into Peripheral Vein, Percutaneous Approach (ICD-10-PCS; 2020-05-08)
DX: O36.63X0 Maternal care for excessive fetal growth, third trimester, not applicable or unspecified (principal); E66.9 Obesity, unspecified; Z37.0 Single live birth; Z3A.39 39 weeks gestation of pregnancy; O32.6XX0 Maternal care for compound presentation, not applicable or unspecified; O70.1 Second degree perineal laceration during delivery; O70.0 First degree perineal laceration during delivery; F17.200 Nicotine dependence, unspecified, uncomplicated; O99.334 Smoking (tobacco) complicating childbirth; O99.214 Obesity complicating childbirth; O99.824 Streptococcus B carrier state complicating childbirth; O13.4 Gestational [pregnancy-induced] hypertension without significant proteinuria, complicating childbirth

== ENCOUNTER 2020-06-17 04:53 | Emergency (ER) | payer OTHER ==
[~2020-06-17] VITALS: Ht 177.8 cm; Wt 104.4 kg
[2020-06-17 04:54] VITALS: BP 139/85
== END 2020-06-17 05:22 | disposition left against medical advice (07) ==
LOC: M ED 04:53
DX: Z53.21 Procedure and treatment not carried out due to patient leaving prior to being seen by health care provider (principal)

== ENCOUNTER → 2020-06-17 | Outpatient (REF) | payer OTHER ==
[~2020-06-17] MED LIST changes: +PRIL20TA2 PO
== END ==
LOC: M LAB REF 11:01
PROVIDERS: ATTEND Physician Assistant Medical
DX: N76.4 Abscess of vulva (principal)

== ENCOUNTER 2022-03-10 21:17 | Emergency (ER) | payer OTHER ==
[~2022-03-10] VITALS: Ht 177.8 cm; Wt 114.4 kg
[~2022-03-10 21:17] MED LIST changes: +EFFE37.5 PO; +KETO10TAB PO; +TRAM50TA2 PO
[2022-03-10 21:18] VITALS: BP 132/74
== END 2022-03-10 23:26 | disposition left against medical advice (07) ==
LOC: M ED 21:17
DX: Z53.21 Procedure and treatment not carried out due to patient leaving prior to being seen by health care provider (principal)

== ENCOUNTER → 2022-03-11 | Outpatient (REF) | payer OTHER ==
[2022-03-11 21:44] LABS: APPEARANCE, URINE MANUAL HAZY (CLEAR); COLOR, URINE MANUAL DK YELLOW (YELLOW)
[2022-03-11 21:46] LABS: BILIRUBIN, URINE MANUAL NEGATIVE (NEGATIVE); BLOOD URINE MANUAL POSITIVE (NEGATIVE); GLUCOSE, URINE (UA) MANUAL NEGATIVE (NEGATIVE); KETONE, URINE MANUAL NEGATIVE (NEGATIVE); LEUKOCYTE ESTERASE, URINE MAN POSITIVE (NEGATIVE); NITRITE, URINE MANUAL NEGATIVE (NEGATIVE); PH,URINE MAN 7.5 UNITS (5.0 - 7.0); PROTEIN, URINE MANUAL NEGATIVE (NEGATIVE); SPECIFIC GRAVITY,URINE MANUAL 1.005 (1.002-1.035); UROBILINOGEN, URINE MANUAL NORMAL (NORMAL)
[2022-03-11 22:02] LABS: AMORPHOUS SEDIMENT, URINE MOD AMOUNT (NEGATIVE); BACTERIA, URINE MOD AMOUNT; HYALINE CAST, URINE NONE SEEN /lpf (0-1); SQUAMOUS EPITHELIAL CELL URINE LARGE AMOUNT /hpf (SMALL AMT); WBC, URINE 20-30 /hpf (0-3)
== END ==
LOC: M LAB REF 20:54
PROVIDERS: ATTEND Physician Assistant
DX: N39.0 Urinary tract infection, site not specified (principal)

== ENCOUNTER → 2022-03-21 | Outpatient (REF) | payer OTHER ==
[2022-03-21 18:10] LABS: APPEARANCE, URINE MANUAL HAZY (CLEAR); BILIRUBIN, URINE MANUAL NEGATIVE (NEGATIVE); COLOR, URINE MANUAL YELLOW (YELLOW); GLUCOSE, URINE (UA) MANUAL NEGATIVE (NEGATIVE); KETONE, URINE MANUAL NEGATIVE (NEGATIVE); NITRITE, URINE MANUAL NEGATIVE (NEGATIVE); PROTEIN, URINE MANUAL TRACE mg/dL (NEGATIVE); UROBILINOGEN, URINE MANUAL NORMAL (NORMAL)
[2022-03-21 18:11] LABS: BLOOD URINE MANUAL POSITIVE (NEGATIVE); LEUKOCYTE ESTERASE, URINE MAN POSITIVE (NEGATIVE)
[2022-03-21 19:28] LABS: GC DNA AMPLIFICATION NEGATIVE (NEGATIVE)
[2022-03-21 20:42] LABS: WBC, URINE TNTC /hpf (0-3)
[2022-03-21 20:43] LABS: SQUAMOUS EPITHELIAL CELL URINE SMALL AMOUNT /hpf (SMALL AMT)
[2022-03-21 20:44] LABS: BACTERIA, URINE SMALL AMOUNT; RBC, URINE 15-20 /hpf (0-3)
[2022-03-21 20:46] LABS: HYALINE CAST, URINE NONE SEEN /lpf (0-1)
== END ==
LOC: M LAB REF 16:31
PROVIDERS: ATTEND Physician Assistant
DX: N39.0 Urinary tract infection, site not specified (principal)

== ENCOUNTER → 2022-05-31 | Outpatient (REF) | payer BC, OTHER | LOC: M SFHCWAGY 10:10 | PROVIDERS: ATTEND Advanced Practice Midwife | DX: Z12.4 Encounter for screening for malignant neoplasm of cervix (principal); R87.612 Low grade squamous intraepithelial lesion on cytologic smear of cervix (LGSIL) ==

== ENCOUNTER → 2023-06-04 | Outpatient (REF) | payer OTHER ==
[~2023-06-04] MED LIST changes: -EFFE37.5 PO; +EFFE37.52 PO
[2023-06-04 20:16] LABS: Trichomonas vaginalis (AMP) NOT DETECTED (NEGATIVE)
[2023-06-04 20:40] LABS: GC DNA AMPLIFICATION NEGATIVE (NEGATIVE)
== END | disposition home or self-care (01) ==
LOC: M PLALAB 14:00
PROVIDERS: ATTEND Advanced Practice Midwife
DX: R87.615 Unsatisfactory cytologic smear of cervix (principal)

== ENCOUNTER → 2023-07-03 | Outpatient (REF) | payer OTHER | LOC: M PLALAB 13:26 | PROVIDERS: ATTEND Advanced Practice Midwife | DX: Z12.4 Encounter for screening for malignant neoplasm of cervix (principal); R87.5 Abnormal microbiological findings in specimens from female genital organs ==

== ENCOUNTER → 2023-10-21 | Outpatient (REF) | payer OTHER ==
[2023-10-21 22:32] LABS: AMORPHOUS SEDIMENT SMALL (NEGATIVE); APPEARANCE, URINE CLOUDY (CLEAR); BACTERIA, URINE AUTO NEGATIVE (NEGATIVE); BILIRUBIN, URINE AUTO NEGATIVE (NEGATIVE); BLOOD, URINE BLOOD NEGATIVE (NEGATIVE); COLOR, URINE YELLOW (YELLOW); GLUCOSE, URINE (UA) AUTO NEGATIVE (NEGATIVE); KETONE, URINE AUTO NEGATIVE (NEGATIVE); LEUKOCYTE ESTERASE, URINE AUTO NEGATIVE (NEGATIVE); MUCUS, URINE SMALL (NEGATIVE); NITRITE, URINE AUTO NEGATIVE (NEGATIVE); PROTEIN, URINE AUTO 1+ mg/dL (NEGATIVE); RBC, URINE AUTO 0 /HPF (0-3); SPECIFIC GRAVITY URINE AUTO 1.025 (1.002-1.035); SQUAMOUS EPITHELIAL CELL UR AU 1 /HPF (0-6); WBC, URINE AUTO 0 /HPF (0-3)
== END ==
LOC: M LAB REF 22:07
PROVIDERS: ATTEND Physician Assistant Medical
DX: N39.0 Urinary tract infection, site not specified (principal)

== ENCOUNTER → 2024-06-09 | Outpatient (CLI) | payer OTHER ==
[2024-06-09 14:02] LABS: THYROID STIMULATING HORMONE 1.349 uIU/ML (0.55-4.78)
[2024-06-09 14:03] LABS: FOLLICLE STIMULATING HORMONE 4.3 mIU/ML; PROGESTERONE 0.56 NG/ML
[2024-06-09 14:04] LABS: LUTEINIZING HORMONE 5.3 mIU/ML
[2024-06-09 14:05] LABS: ESTRADIOL 181.3 PG/ML; PROLACTIN 4.45 NG/ML
[2024-06-09 14:06] LABS: FREE T4 1.03 NG/DL (0.89-1.76)
[2024-06-09 14:10] LABS: HEMOGLOBIN A1c 5.3 % (4.0-6.0)
[2024-06-09 15:21] LABS: Trichomonas vaginalis (AMP) NOT DETECTED (NEGATIVE)
[2024-06-09 15:44] LABS: GC DNA AMPLIFICATION NEGATIVE (NEGATIVE)
[2024-06-10 09:03] LABS: DEHYDROEPIANDROSTERONE SULFATE 163 mcg/dL (14-349)
== END ==
LOC: M PLALAB 11:29
PROVIDERS: ATTEND Nurse Practitioner Family
DX: Z31.69 Encounter for other general counseling and advice on procreation (principal); Z11.3 Encounter for screening for infections with a predominantly sexual mode of transmission

== ENCOUNTER → 2025-02-14 | Outpatient (REF) | payer OTHER | LOC: M LAB REF 17:05 | PROVIDERS: ATTEND Physician Assistant Medical | DX: B34.9 Viral infection, unspecified (principal) ==